=== PATIENT | female | born 1995 | race Caucasian/White ===

== ENCOUNTER 2022-02-07 19:46 | Emergency (ER) | payer OTHER, SELFPAY ==
--- NOTE | 2022-02-07 19:48 | XRR_ITS ---
PROCEDURE INFORMATION: Exam: XR Chest Exam date and time: 02/07/2022 10:20 PM Age: 26 years old Clinical indication: Shortness of breath; Additional info: SOB TECHNIQUE: Imaging protocol: XR of the chest. Views: 2 views. COMPARISON: No relevant prior studies available. FINDINGS: Lungs: Unremarkable. No consolidation. Pleural spaces: Unremarkable. No pleural effusion. No pneumothorax. Heart/Mediastinum: Unremarkable. No cardiomegaly. Bones/joints: Unremarkable. XR/XR chest 2V* [id number] IMPRESSION: No acute findings.
[2022-02-07 20:04] VITALS: BP 139/84; PULSE 67; RESP 15; TEMP 36.9; O2SAT 98; BMI 30.2
--- NOTE | 2022-02-07 22:16 | ECG_ITS ---
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 Measurements Intervals [place] Rate: 60 P: 68 NE: 188 QRS: 68 QRSD: 91 T: 67 QT: 417 QTc: 418 Interpretive Statements SINUS RHYTHM No previous ECG available for comparison Electronically Signed On 02-07-2022 23:00:04 CDT by Bryant Wharton M.D. [id number]
--- NOTE | 2022-02-07 22:44 | W.ED.SOB ---
HPI - SOB/Dyspnea General: Chief Complaint: Shortness of Breath/Dyspnea Stated Complaint: Back pain, trouble breathing, R shoulder pain Time Seen by Provider: 02/07/22 22:01 History of Present Illness: HPI Narrative: Patient is a 26-year-old female comes to the ED with shortness of breath. Patient says her symptoms started 2 days ago. She states that she woke up in the morning and felt short of breath. Patient did see chiropractor before symptoms started and he told her that some of her ribs were out of place and did an adjustment. She is having pain she also described having some mild rib pain on right anterior part of chest. She states she felt out of breath after every 3 to 4 breaths she would take. Any exertion or even at rest she would feel out of breath. She reports she does feel sore in her right ribs. Denies having any symptoms like this before. Patient does endorse being under a lot of stress over the last week and a half. She also endorses having a history of panic attacks but says she has not had a panic attack like this before. Associated symptoms: Reports chest pain; Deny abdominal pain, fever(s), nausea, orthopnea, palpitations or vomiting Review of Systems Const: Denies: fever(s), chills or fatigue Eyes: Denies: change in vision or eye discomfort ENMT: Denies: throat pain, odynophagia, nasal discharge or nasal congestion Card: Reports: chest pain; Denies: palpitations, edema, swelling of feet/ankles, dyspnea on exertion or orthopnea Resp: Reports: dyspnea and pain on inspiration (Right side of chest.); Denies: productive cough or non-productive cough GI: Denies: abdominal pain, nausea, vomiting, diarrhea, constipation or hematochezia : Denies: flank pain, dysuria or hematuria Musc: Denies: neck pain, back pain or extremity swelling Skin/Breast: Denies: rash or new lesions Neuro: Denies: headache(s), numbness in extremities or weakness in extremities PFS ED PFSH: Medical History No pertinent family history Surgical History No pertinent past surgical history Female Reproductive History: Date of last menstrual period: 01/16/22 Physical Exam Const: COMMON NORMALS: no acute distress, patient oriented x3, healthy appearing and alert GENERAL APPEARANCE: cooperative and anxious HENMT: COMMON NORMALS: normocephalic HEAD & SCALP: normocephalic MOUTH: Normal oral and palatal mucosa present THROAT: posterior oropharynx normal and uvula midline Eye: COMMON NORMALS: Equal, round and reactive pupils present PUPIL: Yes Equal, round and reactive pupils present Neck/C-Spine: COMMON NORMALS: supple GENERAL: Yes normal visual inspection Chest: CHEST: Yes tenderness rib right mid-clavicular line involving the 6th rib and involving the 7th rib Resp: COMMON NORMALS: normal respiratory effort, No retractions, No use of accessory muscles and clear to auscultation bilaterally AUSCULTATION: clear to auscultation bilaterally Cardio: COMMON NORMALS: regular rate, regular rhythm, S1 normal heart sound present, S2 normal heart sound present, No gallops present (Cardio), No clicks present (Cardio), No murmurs present (Cardio) and Peripheral pulses 2+ throughout RATE: regular rate RHYTHM: regular rhythm HEART SOUNDS: S1 normal heart sound present and S2 normal heart sound present PERIPHERAL PULSES: Peripheral pulses 2+ throughout GI: COMMON NORMALS: Normal to inspection, nondistended, normoactive bowel sounds present, Soft to palpation, non-tender and no masses PALPATION: Yes Soft to palpation : COMMON NORMALS: Yes no CVA tenderness BLADDER/KIDNEY EXAM: Yes no CVA tenderness Back/Pelvis: COMMON NORMALS: no CVA tenderness Extremity: COMMON NORMALS: normal to inspection Neuro: COMMON NORMALS: patient oriented x3 and moves all extremities SENSORIUM/ORIENTATION: Yes alert Skin: GENERAL SKIN EXAM: dry skin Course Vital Signs: Vital signs: Vital Signs Temperature 98.4 F 02/07/22 20:04 Pulse Rate 67 02/07/22 20:04 Respiratory Rate 15 02/07/22 20:04 Blood Pressure 139/84 02/07/22 20:04 Pulse Oximetry 98 02/07/22 20:04 MDM - SOB/Dyspnea Medical Decision Making Patient is a 26-year-old female who comes to the ED with shortness of breath and some chest pain. Patient says symptoms started after she had chiropractic adjustment done. She has some pleuritic pain and right chest wall region. Patient also reports she has been under a lot of stress recently and has a history of panic attacks but says this feels different than past panic attacks. Vitals are stable patient's oxygen saturation is 98% and her respirations are 15. Exam of patient shows a healthy nontoxic-appearing patient in no acute distress or pain. She does appear little anxious. She has some right anterior chest wall tenderness but the rest of exam is benign. Her lungs are clear to auscultation bilaterally. Chest x-ray showed no acute findings. CBC, CMP were unremarkable. EKG showed normal sinus rhythm with no ST segment elevation or depression seen. Troponin negative. Symptoms likely due to chiropractic rib adjustment and stress. She was diagnosed with noncardiac chest pain and shortness of breath. Patient was stable for discharge home she was told to follow-up with her PCP in the next 3 to 5 days for reevaluation. Return to ED precautions given. Patient understood and agreed with plan. Lab Data I reviewed the patient's lab results. : 02/07/22 22:45 02/07/22 22:45 Labs/Radiology: Radiology Impressions Chest X-Ray 02/07/22 19:48 IMPRESSION: No acute findings. Laboratory Results WBC 8.3 10^3/uL (4.0-10.0) 02/07/22 22:45 RBC 4.50 10^6/uL (4.1-5.3) 02/07/22 22:45 Hgb 13.4 g/dL (11.5-15.3) 02/07/22 22:45 Hct 40.0 % (37.0-47.0) 02/07/22 22:45 MCV 88.9 fl (81-99) 02/07/22 22:45 MCH 29.8 pg (28.0-34.0) 02/07/22 22:45 MCHC 33.5 g/dL (30.0-36.0) 02/07/22 22:45 RDW 12.5 % (12.1-15.1) 02/07/22 22:45 Plt Count 174 10^3/cmm (130-400) 02/07/22 22:45 MPV 11.1 fL (7.4-10.4) H 02/07/22 22:45 Neut % (Auto) 50.6 % 02/07/22 22:45 Lymph % (Auto) 40.1 % 02/07/22 22:45 [place] % (Auto) 7.5 % 02/07/22 22:45 Eos % (Auto) 1.3 % 02/07/22 22:45 Baso % (Auto) 0.1 % 02/07/22 22:45 Neut # (Auto) 4.18 10^3/uL (1.8-7.7) 02/07/22 22:45 Lymph # (Auto) 3.3 10^3/uL (0.8-4.8) 02/07/22 22:45 [place] # (Auto) 0.6 10^3/uL (0.2-0.9) 02/07/22:45 Eos # (Auto) 0.1 10^3/uL (0.0-0.8) 02/07/22:45 Baso # (Auto) 0.0 10^3/uL (0.0-0.1) 02/07/22 22:45 Nucleated RBC % (auto) 0 % 02/07/22: Nucleated RBCs # 0.0 /100WBC 02/07/22 22:45 Sodium 135 mmol/L (136-145) L 02/07/22 22:45 Potassium 3.5 mmol/L (3.5-5.1) 02/07/22:45 Chloride 101 mmol/L (98-107) 02/07/22 22:45 Carbon Dioxide 25 mmol/L (22-29) 02/07/22 22:45 Anion Gap 12.5 (5-19) 02/07/22 22:45 BUN 16 mg/dL (6-20) 02/07/22 22:45 Creatinine 0.8 mg/dL (0.5-0.9) 02/07/22 22:45 GFR Calculation 86.0 mL/min (90-130) L 02/07/22 22:45 Glucose 98 mg/dL (65-115) 02/07/22 22:45 Calculated Osmolality 281 mOsm/kg (285-295) L 02/07/22 22:45 Calcium 9.3 mg/dL (8.5-10.5) 02/07/22 22:45 Total Bilirubin 0.2 mg/dL (0.15-1.2) 02/07/22 22:45 AST 15 U/L (0-32) 02/07/22 22:45 ALT 13 U/L (0-33) 02/07/22 22:45 Alkaline Phosphatase 56 IU/L (35-105) 02/07/22 22:45 Troponin T Baseline 6 ng/L (0-10) 02/07/22 22:45 Total Protein 6.9 g/dL (6.6-8.7) 02/07/22 22:45 Albumin 4.6 g/dL (3.5-5.2) 02/07/22 22:45 Globulin 2.3 g/dL (1.3-4.6) 02/07/22 22:45 Urine Color Yellow (Yellow) 02/07/22 22:45 Urine Appearance Clear (CLEAR) 02/07/22 22:45 Urine pH 6 (5-7) 02/07/22 22:45 Ur Specific [place] 1.020 (1.005-1.030) 02/07/22 22:45 Urine Protein Neg (Negative) 02/07/22 22:45 Urine Glucose (UA) Norm (Normal) 02/07/22 22:45 Urine Ketones Negative (Negative) 02/07/22 22:45 Urine Blood Neg (Negative) 02/07/22 22:45 Urine Nitrate Negative (Negative) 02/07/22 22:45 Urine Bilirubin Neg (Negative) 02/07/22 22:45 Urine Urobilinogen Norm mg/dL (Negative) 02/07/22 22:45 Ur Leukocyte Esterase Negative (Negative) 02/07/22 22:45 EKG Data EKG 1: EKG Interpretation Date: 02/07/22 Interpretation: Normal sinus rhythm, 60 bpm, no ST segment elevation or depression seen. Discharge Plan Discharge Patient Disposition: Home Clinical Impression: Non-cardiac chest pain, Shortness of breath Condition: Stable Prescriptions: No Action No Known Home Medications 0RF Discharge Orders: Discharge ED (Routine); Ordered 02/07/22 Ordered By: Fabian Alonso Referrals: Cely Man, LUCIANA [Primary Care Provider] - Discharge Diet: Regular Discharge Activity: Increase activity as tolerated Patient Instructions: Noncardiac Chest Pain (ED), Shortness of Breath (ED) Activity Restrictions/Additional Instructions: Follow-up with medical provider as directed in the next 3 to 5 days for reevaluation. Take [id number] ibuprofen 800 mg every 8 hours as needed for rib pain. You can apply cold pack on right ribs as well to help with soreness. Return to the ER or your medical provider if condition worsens. Please read and understand discharge instructions. Thank you for choosing [facility] for your healthcare needs today. Please realize this is an emergency room and that we are providing you with a medical screening exam and this may not be complete and all inclusive of all the testing and or work up that you may need to determine your ailment or severity of your illness. It is very important that you follow up as instructed or that you return to the Emergency Department should you have concerns or if your condition changes or worsens in any way. Coding Level of Care Code ED Lumber Tallier for Natalie Durbin Exam Comprehensive
[2022-02-07 22:54] LABS: Add Urine Microscopic? NO; Basophils % 0.1 %; Charge for UA Resulting for Rev; Eosinophils # 0.1 10^3/uL (0.0-0.8); Eosinophils % 1.3 %; Hemoglobin 13.4 g/dL (11.5-15.3); Lymphocytes # 3.3 10^3/uL (0.8-4.8); Lymphocytes % 40.1 %; Mean Corpuscular HGB Conc 33.5 g/dL (30.0-36.0); Mean Corpuscular Hemoglobin 29.8 pg (28.0-34.0); Mean Corpuscular Volume 88.9 fl (81-99); Mean Platelet Volume 11.1 fL (7.4-10.4); Monocytes # 0.6 10^3/uL (0.2-0.9); Monocytes % 7.5 %; Neutrophils # 4.18 10^3/uL (1.8-7.7); Neutrophils % 50.6 %; Nucleated Red Blood Cells % 0 %; Platelet Count 174 10^3/cmm (130-400); Red Cell Distribution Width 12.5 % (12.1-15.1); White Blood Count 8.3 10^3/uL (4.0-10.0)
[2022-02-07 22:58] LABS: Bilirubin Urine Neg (Negative); Blood Urine Neg (Negative); Glucose Urine UA Norm (Normal); Ketones Urine Negative (Negative); Leukocyte Esterase Urine Negative (Negative); Nitrate Urine Negative (Negative); Protein Urine Neg (Negative); Urine Appearance Clear (CLEAR); Urine Color Yellow (Yellow); Urobilinogen Urine Norm (Negative); pH Urine 6 (5-7)
[2022-02-07 23:22] LABS: Alanine Aminotransferase 13 U/L (0-33); Albumin Level 4.6 g/dL (3.5-5.2); Alkaline Phosphatase 56 IU/L (35-105); Anion Gap 12.5 (5-19); Aspartate Amino Transferase 15 U/L (0-32); Blood Urea Nitrogen 16 mg/dL (6-20); Calcium 9.3 mg/dL (8.5-10.5); Carbon Dioxide 25 mmol/L (22-29); Chloride 101 mmol/L (98-107); Globulin 2.3 g/dL (1.3-4.6); Glucose 98 mg/dL (65-115); Osmolality Calculated 281 mOsm/kg (285-295); Potassium 3.5 mmol/L (3.5-5.1); Sodium 135 mmol/L (136-145); Total Bilirubin 0.2 mg/dL (0.15-1.2); Total Protein 6.9 g/dL (6.6-8.7); Troponin(5th) Baseline 6 ng/L (0-10)
== END 2022-02-08 00:05 | disposition home or self-care (01) ==
PROVIDERS: Emergency Provider Physician Assistant; PCP Registered Nurse
DX: R07.89 Other chest pain (principal); R06.02 Shortness of breath
CPT/HCPCS: 71046; 80053; 81003; 84484; 85025; 93005; 99284

== ENCOUNTER 2024-04-30 18:49 | Emergency (ER) | payer OTHER, SELFPAY ==
[2024-04-30] VITALS (7 sets, daily range): BP systolic 122–160; BP diastolic 70–95; PULSE 72–122; RESP 16–18; TEMP 39.2–39.5; O2SAT 94–98; BMI 42.7
--- NOTE | 2024-04-30 19:17 | XRR_ITS ---
PROCEDURE INFORMATION: Exam: XR Chest Exam date and time: 04/30/2024 7:43 PM Age: 28 years old Clinical indication: Fever; Additional info: Possible sepsis, fever, nausea/vomiting, dizziness x 5 days TECHNIQUE: Imaging protocol: Radiologic exam of the chest. Views: 1 view. COMPARISON: CR XR chest 2V* [id number] 02/07/2022 10:20 PM FINDINGS: Lungs: The lungs are adequately expanded. No focal consolidations or pulmonary edema. Pleural spaces: No pleural effusions or pneumothorax. Heart/Mediastinum: No cardiomegaly. Bones/joints: No acute fractures. XR/XR chest 1V portable [id number] IMPRESSION: No acute pulmonary disease.
--- NOTE | 2024-04-30 19:30 | ECG_ITS ---
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 Measurements Intervals [place] Rate: 114 P: 49 NC: 164 QRS: 58 QRSD: 97 T: 37 QT: 291 QTc: 401 Interpretive Statements SINUS TACHYCARDIA POSSIBLE LEFT ATRIAL ENLARGEMENT [-0.1mV P-WAVE IN V1/V2] LOW QRS VOLTAGE IN PRECORDIAL LEADS [QRS DEFLECTION < 1.0 mV IN CHEST LEADS] PATTERN CONSISTENT WITH PULMONARY DISEASE No previous ECG available for comparison Electronically Signed On 05-01-2024 9:07:14 CDT by Bryant Wharton M.D. [id number]
[2024-04-30] MEDS: acetaminophen 500 mg Tablet 1000 MG PO (19:35)
[2024-04-30] MEDS: sodium chloride 0.9% 500 ML 999 ML IV (19:37)
[2024-04-30] MEDS: sodium chloride 0.9% 1,000 ML 999 ML IV (19:38)
[2024-04-30 19:39] LABS: Charge for UA Resulting for Rev
--- NOTE | 2024-04-30 19:42 | ED_ITS ---
HPI - Fever 2 General: Chief Complaint: Fever Stated Complaint: Fever Body Aches Time Seen by Provider: 04/30/24 19:20 Source: patient History of Present Illness: Patient is a well-appearing previously healthy 28-year-old female who presents with fever intermittently for the last 5 days. Patient states that she has had fever up to 104 ?F at home. She reports having generalized malaise with myalgias and arthralgias. She has had occasional headaches. She denies any other systemic symptoms other than she has had some diarrhea. No cough or congestion. No shortness of breath. No sore throat. No skin rashes or lesions. She is breast-feeding but adamantly denies any thoughts or concerns of mastitis. She has had mastitis before and states she has no breast tenderness or redness or warmth. She did recently finished her menstrual cycle. She has not 9-month-old at home. She denies any abdominal pain or pelvic pain. No dysuria or frequency. MD elicited complaint: fever, malaise and weakness Associated symptoms: Reports chills, diarrhea, headache(s) and nausea; Deny abdominal pain, chest pain or vomiting Review of Systems 2 Const: Reports: fever(s), chills, body aches, fatigue and malaise Card: Denies: chest pain or swelling of feet/ankles Resp: Denies: dyspnea, productive cough or wheezing GI: Reports: nausea and diarrhea; Denies: abdominal pain or vomiting Skin/Breast: Denies: rash Neuro: Reports: headache(s) PFSH ED 2 PFSH: Medical History No pertinent family history Surgical History No pertinent past surgical history Physical Exam 2 Const: COMMON NORMALS: no acute distress, no limitations and alert GENERAL APPEARANCE: cooperative, comfortable, well kempt and well developed O RIENTATION/CONSCIOUSNESS: Yes awake HENMT: COMMON NORMALS: normocephalic and Normal external nose present HEAD & SCALP: normocephalic NOSE: Normal external nose present MOUTH: Normal oral and palatal mucosa present THROAT: posterior oropharynx normal and uvula midline Eye: COMMON NORMALS: EOMs intact bilaterally and conjunctivae normal C ONJUNCTIVA: Yes conjunctivae normal Neck/C-Spine: COMMON NORMALS: full ROM, supple and no meningeal signs G ENERAL: Yes normal visual inspection, No tracheal deviation and No submandibular swelling Chest: COMMONS NORMALS: normal inspection of the chest Resp: COMMON NORMALS: normal respiratory effort, No retractions, No use of accessory muscles and clear to auscultation bilaterally AUSCULTATION: clear to auscultation bilaterally Cardio: COMMON NORMALS: regular rhythm, S1 normal heart sound present and Peripheral pulses 2+ throughout RATE: tachycardic RHYTHM: regular rhythm HEART SOUNDS: S1 normal heart sound present PERIPHERAL PULSES: Peripheral pulses 2+ throughout GI: COMMON NORMALS: Normal to inspection, nondistended, normoactive bowel sounds present, Soft to palpation and non-tender PALPATION: Yes Soft to palpation Extremity: COMMON NORMALS: normal to inspection and full ROM Neuro: COMMON NORMALS: moves all extremities SENSORIUM/ORIENTATION: Yes alert MENINGEAL SIGNS: Yes no meningeal signs Psych: COMMON NORMALS: mental status grossly normal APPEARANCE: Yes well kempt Skin: COMMON NORMALS: no rashes or lesions noted, no wounds and no jaundice GENERAL SKIN EXAM: no rashes or lesions noted Course 2 Vital Signs: Vital signs: Vital Signs Temperature 102.5 F H 04/30/24 20:23 Pulse Rate 72 04/30/24 20:30 Respiratory Rate 16 04/30/24 20:30 Blood Pressure 122/72 04/30/24 19:58 Pulse Oximetry 98 04/30/24 20:30 Oxygen Delivery Me thod Room Air 04/30/24 20:23 MDM - Fever Medical Decision Making Patient is a previously healthy 28-year-old female who presents to the ER for evaluation of 4 to 5 days of intermittent fever. She has no other real systemic symptoms other than she has had some occasional nausea and diarrhea. No vomiting. She has a benign abdominal exam. She does state that she certainly has had the potential for tick exposure but denies any known tick bites. No skin rashes or lesions. Basic labs were obtained including a CBC, CMP and COVID swab. COVID swab was negative for acute findings. Patient has a white blood cell count of 4.2. She has mild thrombocytopenia with platelets of 114. She has some mild transaminitis on her liver function test. Rest of her workup is unremarkable. She reports feeling significantly better after receiving Tylenol and some IV fluids here. She is requesting discharge as her has been waiting in the parking lot. Given her thrombocytopenia mild transaminitis and potential tick exposure I think it is reasonable to go ahead and place her on doxycycline for possible tick illness. I will go ahead and send a tick panel. Patient is requested to follow-up with her PCP this week and was provided strict return precautions. Lab Data I reviewed the patient's lab results. 04/30/24 17:24 04/30/24 17:24 Radiology Impressions Chest X-Ray 04/30/24 19:17 IMPRESSION: No acute pulmonary disease. Laboratory Results WBC 4.20 10^3/uL (3.29-11.43) 04/30/24 17: RBC 5.56 10^6/uL (3.85-5.65) 04/30/24 17: Hgb 15.60 g/dL (11.27-16.99) 04/30/24 17:24 Hct 46.7 % (36-47) 04/30/24 17: MCV 84.0 fl (85-98) L 04/30/24 17:24 MCH 28.1 pg (27-33) 04/30/24 17: MCHC 33.4 g/dL (30-55) 04/30/24 17: RDW 13.2 % (12.1-15.1) 04/30/24 17: Plt Count 114 10^3/cmm (157-399) L 04/30/24 17:24 MPV 11.0 fL (7.4-10.4) H 04/30/24 17: Neut % (Auto) 54.3 % 04/30/24 17:24 Lymph % (Auto) 39.3 % 04/30/24 17:24 [place] % (Auto) 6.0 % 04/30/24 17:24 Eos % (Auto) 0.0 % 04/30/24 17: Baso % (Auto) 0.2 % 04/30/24 17: Neut # (Auto) 2.28 10^3/uL (1.8-7.7) 04/30/24 17:24 Lymph # (Auto) 1.7 10^3/uL (0.8-4.8) 04/30/24 17: [place] # (Auto) 0.3 10^3/uL (0.2-0.9) 04/30/24 17:24 Eos # (Auto) 0.0 10^3/uL (0.0-0.8) 04/30/24 17:24 Baso # (Auto) 0.0 10^3/uL (0.0-0.1) 04/30/24 17:24 Nucleated RBC % (auto) 0 % 04/30/24 17:24 Nucleated RBCs # 0.0 /100WBC 04/30/24 17:24 Sodium 137 mmol/L (136-145) 04/30/24 17:24 Potassium 4.2 mmol/L (3.5-5.1) 04/30/24 17:24 Chloride 103 mmol/L (98-107) 04/30/24 17:24 Carbon Dioxide 23 mmol/L (22-29) 04/30/24 17:24 Anion Gap 15.2 (5-19) 04/30/24 17:24 BUN 15 mg/dL (6-20) 04/30/24 17:24 Creatinine 0.9 mg/dL (0.5-0.9) 04/30/24 17:24 GFR Calculation 74.0 mL/min (90-130) L 04/30/24 17:24 Glucose 107 mg/dL (65-115) 04/30/24 17:24 Calculated Osmolality 285 mOsm/kg (285-295) 04/30/24 17:24 Lactic Acid 0.7 mmol/L (0.5-2.2) 04/30/24 17:24 Calcium 9.0 mg/dL (8.5-10.5) 04/30/24 17:24 Total Bilirubin 0.6 mg/dL (0.15-1.2) 04/30/24 17:24 AST 88 U/L (0-32) H 04/30/24 17:24 ALT 116 U/L (0-33) H 04/30/24 17:24 Alkaline Phosphatase 87 U/L (35-105) 04/30/24 17:24 Total Protein 7.4 g/dL (6.6-8.7) 04/30/24 17:24 Albumin 4.4 g/dL (3.5-5.2) 04/30/24 17:24 Globulin 3.0 g/dL (1.3-4.6) 04/30/24 17:24 Urine Color Yellow (Yellow) 04/30/24 19:30 Urine Appearance Clear (CLEAR) 04/30/24 19:30 Urine pH 5.5 (5-7) 04/30/24 19:30 Ur Specific [place] 1.011 (1.005-1.030) 04/30/24 19:30 Urine Protein Negative (Negative) 04/30/24 19:30 Urine Glucose (UA) Negative (Normal) 04/30/24 19:30 Urine Ketones Negative (Negative) 04/30/24 19:30 Urine Blood Trace (Negative) A 04/30/24 19:30 Urine Nitrate Negative (Negative) 04/30/24 19:30 Urine Bilirubin Negative (Negative) 04/30/24 19:30 Urine Urobilinogen 1.0 mg/dL (Negative) 04/30/24 19:30 Ur Leukocyte Esterase Negative (Negative) 04/30/24 19:30 Urine RBC 0-2 /hpf (0-2) 04/30/24 19:30 Urine WBC 0-5 /hpf (0-5) 04/30/24 19:30 Ur Squamous Epith Cells 0-5 /hpf (0-5) 04/30/24 19:30 Amorphous Sediment Not Reportable 04/30/24 19:30 Urine Bacteria None seen /hpf (NONE) 04/30/24 19:30 Hyaline Casts 0-4 /lpf H 04/30/24 19:30 SARS-CoV-2 Ag (Rapid) Negative (Negative) 04/30/24 20:19 All radiology interpretation(s) finalized by discharge Discharge Plan Discharge Patient Disposition: Home Clinical Impression: Acute febrile illness Condition: Stable Prescriptions: New doxycycline hyclate 100 mg capsule 100 mg PO BID 10 Days Qty: 20 0RF No Action No Known Home Medications Discharge Orders: Discharge ED (Routine); Ordered 04/30/24 Ordered By: Troy Law Referrals: Magan Garcia DO [Primary Care Provider] - Patient Instructions: Opioid Safety, Pain Management, Fever - Adult Activity Restrictions/Additional Instructions: Continue Tylenol and ibuprofen as discussed for fever. Drink plenty of fluids to stay hydrated. Follow-up with your PCP for recheck in 3 to 5 days. Return for any new or worsening symptoms or any other concerns. Coding Level of Care Code ED Licensed Psychiatric Technician for Natalie Durbin
[2024-04-30 19:44] LABS: Basophils % 0.2 %; Hematocrit 46.7 % (36-47); Lymphocytes # 1.7 10^3/uL (0.8-4.8); Lymphocytes % 39.3 %; Mean Corpuscular HGB Conc 33.4 g/dL (30-55); Mean Corpuscular Hemoglobin 28.1 pg (27-33); Monocytes # 0.3 10^3/uL (0.2-0.9); Neutrophils # 2.28 10^3/uL (1.8-7.7); Neutrophils % 54.3 %; Nucleated Red Blood Cells % 0 %; Platelet Count 114 10^3/cmm (157-399); Red Blood Count 5.56 10^6/uL (3.85-5.65); Red Cell Distribution Width 13.2 % (12.1-15.1)
[2024-04-30] MEDS: ondansetron 2 mg/ML SDV 2 mL 4 MG IVP (19:45)
[2024-04-30 19:54] LABS: Bilirubin Urine Negative (Negative); Blood Urine Trace (Negative); Glucose Urine UA Negative (Normal); Ketones Urine Negative (Negative); Leukocyte Esterase Urine Negative (Negative); Nitrate Urine Negative (Negative); Protein Urine Negative (Negative); Specific Gravity, Urine 1.011 (1.005-1.030); Urine Appearance Clear (CLEAR); Urine Color Yellow (Yellow); pH Urine 5.5 (5-7)
[2024-04-30 19:58] LABS: Alanine Aminotransferase 116 U/L (0-33); Albumin Level 4.4 g/dL (3.5-5.2); Alkaline Phosphatase 87 U/L (35-105); Anion Gap 15.2 (5-19); Aspartate Amino Transferase 88 U/L (0-32); Blood Urea Nitrogen 15 mg/dL (6-20); Carbon Dioxide 23 mmol/L (22-29); Chloride 103 mmol/L (98-107); Creatinine Clr Calc Pharmacy 117.6888; Glucose 107 mg/dL (65-115); Osmolality Calculated 285 mOsm/kg (285-295); Potassium 4.2 mmol/L (3.5-5.1); Sodium 137 mmol/L (136-145); Total Bilirubin 0.6 mg/dL (0.15-1.2); Total Protein 7.4 g/dL (6.6-8.7)
[2024-04-30 19:59] LABS: Lactic Sepsis W/Reflex 0.7 mmol/L (0.5-2.2)
[2024-04-30 19:59] LABS: Bacteria Urine None Seen /hpf; Hyaline Casts Urine 0-4 /lpf; RBC Urine 0-2 /hpf (0-2); Squamous Epithelial Cell Urine 0-5 /hpf (0-5); WBC Urine 0-5 /hpf (0-5)
[2024-04-30 20:18] LABS: Slide Review Slide Review Perform
[2024-04-30 21:06] LABS: SARS Covid-2 Antigen Negative (Negative)
== END 2024-04-30 22:00 | disposition home or self-care (01) ==
PROVIDERS: Emergency Medicine; Emergency Provider Student in an Organized Health Care Education/Training Program; PCP Internal Medicine
DX: R50.9 Fever, unspecified (principal); Z11.52 Encounter for screening for COVID-19
CPT/HCPCS: 36415; 71045; 80053; 81003; 81015; 83605; 85025; 87040; 87426; 93005; 96361; 96374; 99285; J2405; J7030; J7040